=== PATIENT | male | born 1975 | race Caucasian/White ===

== ENCOUNTER → 2017-08-06 | Outpatient (REF) ==
[~2017-08-06] MED LIST: ACET500T68 PO; AUG500 PO; AZIT-1 PO; CYC10 PO; HYDR-4309 PO; PROM-110 PO
== END ==
LOC: AUD 09:50
PROVIDERS: ATTEND Internal Medicine
DX: Z01.10 Encounter for examination of ears and hearing without abnormal findings (principal)
CPT/HCPCS: 92552

== ENCOUNTER → 2018-08-25 | Outpatient (REF) ==
[~2018-08-25] MED LIST changes: -HYDR-4309 PO; +HYDR-653 PO
== END ==
LOC: AUD 09:05
PROVIDERS: ATTEND Internal Medicine
DX: Z01.12 Encounter for hearing conservation and treatment (principal)
CPT/HCPCS: 92552